=== PATIENT | male | born 1980 | race American Indian/Alaskan Native ===

== ENCOUNTER 2022-01-21 18:58 | Emergency (ER) | payer SELFPAY ==
[2022-01-21] MEDS ORDERED: SODIUM CHLORIDE 0.9% 1000 ML 1,000 ML IV ONE (20:11)
[2022-01-21] MEDS ORDERED: fentaNYL 100 MCG/2 ML INJ IV ONE (20:11)
[2022-01-21] MEDS ORDERED: ONDANSETRON 4 MG/2 ML INJ IV ONE (20:11)
--- NOTE | 2022-01-21 20:16 | Emergency Department Report ---
HPI - General Chief Complaint: Abdominal Pain Time Seen by Provider: 01/21/22 19:52 - HPI HPI: Room 18 The patient is a 41-year-old male present with chief complaint of abdominal pain. Patient states he has been on an alcohol binge for the past 5 days he has had constant epigastric and suprapubic abdominal pain. Patient describes it as sharp in nature. Patient admits to nausea vomiting and diarrhea. Patient denies history of fever. Patient states he last consumed alcohol 8 hours ago. Patient currently gets his pain a score of 9/10 ED Past Medical Hx - Past Medical History Additional medical history: Diverticulosis - Social History Smoking Status: Former Smoker (None x4 days) Substance Use Type: None (Denies illicit drug use), Alcohol (Binge drinker) - Medications Home Medications: Home Medications Medication Instructions Recorded Confirmed Last Taken Type HYDROcodone/APAP 5-325 [[place] 1 each PO Q6HR PRN #10 tablet 01/21/22 Unknown Rx 5/325] Ondansetron [Zofran ODT TAB] 8 mg PO Q8HR #20 tab.rapdis 01/21/22 Unknown Rx ED Review of Systems ROS: Stated complaint: ABD PAIN,ETOH Other details as noted in HPI Constitutional: denies: fever Eyes: denies: eye pain ENT: denies: throat pain Respiratory: no symptoms reported Cardiovascular: denies: chest pain Endocrine: no symptoms reported Gastrointestinal: abdominal pain Musculoskeletal: denies: back pain Neurological: denies: headache Physical Exam - Physical Exam Vital Signs: Vital Signs 01/21/22 18:59 Temperature 98.7 F Pulse Rate 102 H Respiratory 18 Rate Blood Pressure 124/56 O2 Sat by Pulse 98 Oximetry Physical Exam: GENERAL: The patient is well-developed well-nourished male lying on stretcher not appearing to be in acute distress. [] HEENT: Normocephalic. Atraumatic. Extraocular motions are intact. Patient has moist mucous membranes. NECK: Supple. Trachea midline CHEST/LUNGS: Clear to auscultation. There is no respiratory distress noted. HEART/CARDIOVASCULAR: Regular. There is no tachycardia. There is no gallop rub or murmur. ABDOMEN: Abdomen is soft, with diffuse tenderness to palpation. Patient has normal bowel sounds. There is no abdominal distention. SKIN: There is no rash. There is no edema. There is no diaphoresis. NEURO: The patient is awake, alert, and oriented. The patient is cooperative. The patient has no focal neurologic deficits. The patient has normal speech. GCS 15 MUSCULOSKELETAL: There is no evidence of acute injury. ED Course Vital Signs 01/21/22 18:59 Temperature 98.7 F Pulse Rate 102 H Respiratory 18 Rate Blood Pressure 124/56 O2 Sat by Pulse 98 Oximetry ED Medical Decision Making - Lab Data Result diagrams: 01/21/22 22:01 01/21/22 22:01 Laboratory Tests 01/21/22 01/21/22 01/21/22 22:01 22:01 22:01 WBC 3.8 L RBC 3.75 Hgb 12.6 Hct 35.2 L MCV 94 MCH 34 H MCHC 36 H RDW 14.9 Plt Count 205 Lymph % (Auto) 39.4 H [place] % (Auto) 7.1 Eos % (Auto) 1.3 Baso % (Auto) 1.9 H Lymph # (Auto) 1.5 [place] # (Auto) 0.3 Eos # (Auto) 0.0 Baso # (Auto) 0.1 Seg Neutrophils % 50.3 Seg Neutrophils # 1.9 Sodium 134 L Potassium 4.0 Chloride 96.7 L Carbon Dioxide 25 Anion Gap 16 BUN 13 Creatinine 0.9 Estimated GFR > 60 BUN/Creatinine Ratio 14 Glucose 156 H Calcium 7.9 L Total Bilirubin 1.10 AST 350 H ALT 103 H Alkaline Phosphatase 187 H Total Creatine Kinase 179 H CK-MB (CK-2) 1.6 CK-MB (CK-2) Rel Index 0.8 Troponin T < 0.010 Total Protein 6.3 Albumin 3.1 L Albumin/Globulin Ratio 1.0 Lipase 61 H Plasma/Serum Alcohol 0.24 H - EKG Data -: EKG Interpreted by Al EKG shows normal: sinus rhythm Rate: normal - EKG Data When compared to previous EKG there are: previous EKG unavailable Interpretation: other (No ischemic changes seen) - Radiology Data Radiology results: report reviewed (CT abdomen pelvis), image reviewed (CT abdomen pelvis) [facility] [address] [place] [address] Cat Scan Report Signed Patient: ADRIEN MATHEWS MR#: [id number] : 1980 Acct:[id number] Age/Sex: 41 / M ADM Date: 01/21/22 Loc: ED Attending Dr: Ordering Physician: LEYDI GRIMES MD Date of Service: 01/21/22 Procedure(s): CT a bdomen pelvis w con Accession Number(s): [id number] cc: LEYDI GRIMES MD CT ABDOMEN AND PELVIS WITH CONTRAST INDICATION / CLINICAL INFORMATION: Diffuse abdominal pain nausea vomiting. TECHNIQUE: Axial CT images were obtained through the abdomen and pelvis after 100 cc Omnipaque [address] scans at this location are performed using CT dose reduction for ALARA by means of automated exposure control. COMPARISON: None available. FINDINGS: LOWER CHEST: No significant abnormality of the imaged chest. LIVER: Low-attenuation of the liver compatible with moderate hepatic steatosis. A collection of focal fat adjacent the gallbladder fossa. GALLBLADDER: No significant abnormality. BILE DUCTS: No significant abnormality. SPLEEN: No significant abnormality. PANCREAS: Pancreas is upper limits of normal in size very minimal peripancreatic fat stranding in the region of the pancreatic head not excluded. No mass. No ductal dilatation. ADRENALS: No significant abnormality. RIGHT KIDNEY / URETER: No significant abnormality. LEFT KIDNEY / URETER: 1 mm left ureteral stone suggested image #153; series #2. STOMACH / DUODENUM / SMALL BOWEL: No significant abnormality. COLON: Diverticulosis without acute inflammation. APPENDIX: No significant abnormality. PERITONEUM: No free air or free fluid are present within the abdomen or pelvis. LYMPH NODES: No significant adenopathy. AORTA / ARTERIES: No significant abnormality. IVC / VEINS: No significant abnormality. URINARY BLADDER: No significant abnormality. REPRODUCTIVE ORGANS: No significant abnormality. ADDITIONAL ABDOMINAL/PELVIC FINDINGS: None. SKELETAL SYSTEM: No significant abnormality. IMPRESSION: 1. A very small 1 mm left ureteral stone is not excluded. No suggested hydronephrosis. Correlation with urinalysis recommended. 2. Pancreas is upper limits of normal in size. Very minimal fat stranding in the region of pancreatic head not excluded. Correlation with serum lipase recommended. 3. Colonic diverticulosis without obvious diverticulitis. 4. Hepatic steatosis. Signer Name: Blanca Chopra II, MD Signed: 01/21/2022 11:21 PM Workstation Name: [id number] Transcribed By: WARREN Dictated By: BLANCA CHOPRA II, MD Electronically Authenticated By: BLANCA CHOPRA II, MD Signed Date/Time: 01/21/22 2321 DD/ 2318 TD/TT: - Differential Diagnosis Gastritis, pancreatitis, SBO, ACS Critical care attestation.: If time is entered above; I have spent that time in minutes in the direct care of this critically ill patient, excluding procedure time. ED Disposition Clinical Impression: Alcoholic hepatitis, Alcohol intoxication, Nausea & vomiting Disposition: HOME / SELF CARE / HOMELESS Is pt being admited?: No Does the pt Need Aspirin: No Condition: Stable Instructions: Alcoholic Hepatitis, Nausea and Vomiting, Adult Additional Instructions: Return to the emergency department should you develop worsening symptoms, inability to tolerate food or liquids, high fever or any other concerns Prescriptions: HYDROcodone/APAP 5-325 [[place] 5/325] 1 each PO Q6HR PRN #10 tablet PRN Reason: Pain Ondansetron [Zofran ODT TAB] 8 mg PO Q8HR #20 tab.rapdis Referrals: RANDAL SEN MD [Staff Physician] - 3-5 Days (Dr. Sen is a community marketing manager. Please follow-up with him for further evaluate) Time of Disposition: 23:37 (DC to family or when EtOH less than 0.08)
[2022-01-21 22:33] LABS: Basophils # (Auto) 0.1 K/mm3 (0.0-0.1); Basophils % (Auto) 1.9 % (0.0-1.8); Eosinophils % (Auto) 1.3 % (0.0-4.3); Hematocrit 35.2 % (35.5-45.6); Hemoglobin 12.6 gm/dl (11.8-15.2); Lymphocytes # (Auto) 1.5 K/mm3 (1.2-5.4); Lymphocytes % (Auto) 39.4 % (13.4-35.0); Mean Corpuscular HGB Conc 36 % (32-34); Mean Corpuscular Volume 94 fl (84-94); Monocytes # (Auto) 0.3 K/mm3 (0.0-0.8); Monocytes % (Auto) 7.1 % (0.0-7.3); Platelet Count 205 K/mm3 (140-440); Red Blood Count 3.75 M/mm3 (3.65-5.03); Red Cell Distribution Width 14.9 % (13.2-15.2)
[2022-01-21 22:41] LABS: Creatine Kinase MB 1.6 ng/mL (0.0-4.0)
[2022-01-21 22:42] LABS: Albumin 3.1 g/dL (3.9-5); BUN/Creatinine Ratio 14; Blood Urea Nitrogen 13 mg/dL (9-20); Calcium 7.9 mg/dL (8.4-10.2); Hemolysis Index 55
[2022-01-21 22:53] LABS: Alanine Aminotransferase 103 units/L (7-56)
--- NOTE | 2022-01-21 23:26 | Cat Scan Report ---
CT ABDOMEN AND PELVIS WITH CONTRAST INDICATION / CLINICAL INFORMATION: Diffuse abdominal pain nausea vomiting. TECHNIQUE: Axial CT images were obtained through the abdomen and pelvis after 100 cc Omnipaque [address] scans at this location are performed using CT dose reduction for ALARA by means of automated exposure control. COMPARISON: None available. FINDINGS: LOWER CHEST: No significant abnormality of the imaged chest. LIVER: Low-attenuation of the liver compatible with moderate hepatic steatosis. A collection of focal fat adjacent the gallbladder fossa. GALLBLADDER: No significant abnormality. BILE DUCTS: No significant abnormality. SPLEEN: No significant abnormality. PANCREAS: Pancreas is upper limits of normal in size very minimal peripancreatic fat stranding in the region of the pancreatic head not excluded. No mass. No ductal dilatation. ADRENALS: No significant abnormality. RIGHT KIDNEY / URETER: No significant abnormality. LEFT KIDNEY / URETER: 1 mm left ureteral stone suggested image #153; series #2. STOMACH / DUODENUM / SMALL BOWEL: No significant abnormality. COLON: Diverticulosis without acute inflammation. APPENDIX: No significant abnormality. PERITONEUM: No free air or free fluid are present within the abdomen or pelvis. LYMPH NODES: No significant adenopathy. AORTA / ARTERIES: No significant abnormality. IVC / VEINS: No significant abnormality. URINARY BLADDER: No significant abnormality. REPRODUCTIVE ORGANS: No significant abnormality. ADDITIONAL ABDOMINAL/PELVIC FINDINGS: None. SKELETAL SYSTEM: No significant abnormality. IMPRESSION: 1. A very small 1 mm left ureteral stone is not excluded. No suggested hydronephrosis. Correlation wi urinalysis recommended. 2. Pancreas is upper limits of normal in size. Very minimal fat stranding in the region of pancreatic head not excluded. Correlation with serum lipase recommended. 3. Colonic diverticulosis without obvious diverticulitis. 4. Hepatic steatosis. Signer Name: Marcel Gonzalez II, MD Signed: 01/21/2022 11:21 PM Workstation Name: [id number]
[2022-01-22 07:13] VITALS: BP 130/70
--- NOTE | 2022-01-22 10:36 | Electrocardiograph Report ---
[facility] Test Date: 2022-01-21 Test Time: 23:55:30 Pat Name: ADRIEN MATHEWS Department: Room: Gender: M Waist Cutter: AIDA : 1980 Requested By: LEYDI GRIMES Order Number: [id number] Reading MD: Neftaly Tang Measurements Intervals Cannon Rate: 89 P: 70 OR: 180 QRS: 81 QRSD: 88 T: 49 QT: 347 QTc: 422 Interpretive Statements Sinus rhythm No previous ECG available for comparison Electronically Signed On 01-22-2022 10:35:37 EDT by Neftaly Tang
== END 2022-01-22 07:13 | disposition home or self-care (01) ==
LOC: ED 18:58
DX: K70.10 Alcoholic hepatitis without ascites (principal); F10.129 Alcohol abuse with intoxication, unspecified; R11.2 Nausea with vomiting, unspecified; Z87.891 Personal history of nicotine dependence
CPT/HCPCS: 36415; 74177; 80053; 82550; 82553; 83690; 84484; 85025; 93005; 96361; 96374; 96375; 99284; Q9967; 80320; G0480